=== PATIENT | female | born 1990 | race Caucasian/White ===

== ENCOUNTER 2017-12-23 07:39 | Inpatient (IN) | payer MEDICAID ==
[~2017-12-23] VITALS: Ht 170.2 cm
[2017-12-23] MEDS ORDERED: LACTATED RINGERS 1,000 ML IV SCH ×2 (08:23→08:45)
[2017-12-23] MEDS ORDERED: DEXT 5%/LR + PITOCIN 20UNITS/L 1,000 ML IV SCH ×2 (08:23→11:12)
[2017-12-23] MEDS ORDERED: CARBOPROST TROMETHAMINE 250 MCG/ML AMPUL IM PRN (08:30)
[2017-12-23] MEDS ORDERED: LIDOCAINE HCL 1% 20ML VIAL (Pyxis) INJ INFIL SCH (08:30)
[2017-12-23] MEDS ORDERED: PENICILLIN G POTASSIUM 5 MMU in DEXT 5% WATER 100 ML IV SCH (08:30)
[2017-12-23] MEDS ORDERED: METHYLERGONOVINE MALEATE 0.2 MG/ML IM PRN ×2 (08:30→11:15)
[2017-12-23] MEDS ORDERED: MISOPROSTOL 100MCG TABLET VG SCH (08:30)
[2017-12-23] MEDS ORDERED: NALOXONE HCL 0.4 MG/ML 1ML VIAL IM PRN (08:30)
[2017-12-23] MEDS ORDERED: BUTORPHANOL TARTRATE 2 MG/ML VIAL IV PRN (08:30)
[2017-12-23 09:00] LABS: BASOPHILS % 0.2 % (0.0-2.0); EOSINOPHILS % 0.2 % (0.0-5.0); HEMATOCRIT. 34.3 % (36.0-48.0); HEMOGLOBIN. 11.2 g/dL (12.0-16.0); MEAN CORPUSCULAR HEMOGLOBIN 26.4 pg (28.0-32.0); MEAN CORPUSCULAR VOLUME 80.9 fL (81.0-99.0); MEAN PLATELET VOLUME 9.1 fl (7.4-10.4); MONOCYTES % 5.5 % (2.0-8.0); NEUTROPHILS % 76.1 % (40.0-76.0); PLATELET 252 x1000/uL (130-400); RED BLOOD CELL COUNT 4.24 mill/uL (4.2-5.4)
[2017-12-23 09:02] LABS: CLARITY URINE CLEAR (CLEAR); COLOR URINE YELLOW (YELLOW); KETONES URINE NEGATIVE (NEGATIVE); LEUKOCYTE ESTERASE URINE 2+ (NEGATIVE); NITRITE URINE NEGATIVE (NEGATIVE); OCCULT BLOOD URINE NEGATIVE (NEGATIVE); PH URINE 6.5 (4.5-8.0); PROTEIN URINE NEGATIVE (NEGATIVE); SPECIFIC GRAVITY URINE 1.017 (1.005-1.030); UROBILINOGEN URINE 0.2 E.U./dL (0.2-1.0)
[2017-12-23 09:03] LABS: INR 0.9; PARTIAL THROMBOPLASTIN TIME 26.7 sec (23.4-31.0); PROTHROMBIN TIME 9.7 sec (9.4-11.6)
[2017-12-23 09:37] LABS: *AMPHETAMINES SCREEN URINE NEGATIVE (NEGATIVE); *BARBITURATES SCREEN URINE NEGATIVE (NEGATIVE); *BENZODIAZEPINES SCREEN URINE NEGATIVE (NEGATIVE); *COCAINE SCREEN URINE NEGATIVE (NEGATIVE); CANNABINOID URINE SCREEN NEGATIVE (NEGATIVE); METHADONE URINE SCREEN NEGATIVE (NEGATIVE); OPIATES URINE SCREEN NEGATIVE (NEGATIVE); PHENCYCLIDINE URINE SCREEN NEGATIVE (NEGATIVE)
[2017-12-23] MEDS ORDERED: LIDOCAINE HCL/PF 1% 10 MG/ML 5ML VIAL ONE (11:08)
[2017-12-23] MEDS ORDERED: ACETAMINOPHEN WITH CODEINE 300/30MG TABLET PO PRN (11:15)
[2017-12-23] MEDS ORDERED: LANOLIN OINT 0.25 GM TUBE TOP PRN (11:15)
[2017-12-23] MEDS ORDERED: GLYCERIN/WITCH HAZEL LEAF MEDICATED PAD TOP PRN (11:15)
[2017-12-23] MEDS ORDERED: HEMORRHOIDAL SUPP PR PRN (11:15)
[2017-12-23] MEDS ORDERED: BENZOCAINE/LANOLIN/ALOE VERA SPRAY TOP PRN (11:15)
[2017-12-23] MEDS ORDERED: BISACODYL 10MG SUPP PR PRN (11:15)
[2017-12-23] MEDS ORDERED: DIPHENHYDRAMINE 25MG CAPSULE PO PRN (11:15)
[2017-12-23] MEDS: MAGNESIUM/ALUMINUM HYDROXIDE/SIMETHICONE 30ML UDC PO SCH ×2 (12:10→21:57)
[2017-12-23 12:12] LABS: HEPATITIS B SURFACE ANTIGEN NEGATIVE
[2017-12-23] MEDS ORDERED: PENICILLIN G POTASSIUM 2.5 MMU in DEXTROSE 5% WATER 50 ML IV SCH (12:30)
[2017-12-23] MEDS: SIMETHICONE 80MG TABLET CHEW PO SCH ×2 (12:40→21:58)
[2017-12-23 14:00] VITALS: BP 110/70
[2017-12-23] MEDS ORDERED: MISOPROSTOL 200MCG TABLET ONE (14:31)
[2017-12-23] MEDS ORDERED: METHYLERGONOVINE MALEATE 0.2 MG/ML ONE (14:31)
[2017-12-23] MEDS ORDERED: CARBOPROST TROMETHAMINE 250 MCG/ML AMPUL IM ONE (14:31)
[2017-12-23 18:00] VITALS: BP 104/67
[2017-12-23] MEDS: IBUPROFEN 400MG TABLET PO PRN (18:24)
[2017-12-23] MEDS: DOCUSATE SODIUM 100MG CAPSULE PO SCH (21:59)
[2017-12-24] VITALS: BP 114/57
[2017-12-24 06:51] LABS: BASOPHILS % 0.3 % (0.0-2.0); EOSINOPHILS % 0.7 % (0.0-5.0); HEMATOCRIT. 27.8 % (36.0-48.0); HEMOGLOBIN. 9.1 g/dL (12.0-16.0); LYMPHOCYTES % 24.9 % (20.0-50.0); MEAN CORPUSCULAR HEMOGLOBIN 26.4 pg (28.0-32.0); MEAN CORPUSCULAR VOLUME 80.9 fL (81.0-99.0); MEAN PLATELET VOLUME 9.1 fl (7.4-10.4); MONOCYTES % 8.5 % (2.0-8.0); NEUTROPHILS % 65.6 % (40.0-76.0); PLATELET 225 x1000/uL (130-400); RED BLOOD CELL COUNT 3.44 mill/uL (4.2-5.4); RED CELL DISTRIBUTION WIDTH 16.8 % (11.6-14.6)
[2017-12-24 08:00] VITALS: BP 104/61
[2017-12-24] MEDS: MAGNESIUM/ALUMINUM HYDROXIDE/SIMETHICONE 30ML UDC PO SCH ×4 (09:00→20:59)
[2017-12-24] MEDS: PRENATAL VIT/FE FUMARATE/FA TABLET PO SCH (09:53)
[2017-12-24] MEDS: FERROUS SULFATE 325MG TABLET PO SCH ×3 (09:53→17:36)
[2017-12-24] MEDS: SIMETHICONE 80MG TABLET CHEW PO SCH ×4 (09:54→21:02)
[2017-12-24] MEDS: IBUPROFEN 400MG TABLET PO PRN ×2 (09:54→17:37)
[2017-12-24 16:00] VITALS: BP 100/58
[2017-12-24 19:55] VITALS: BP 103/57
[2017-12-24] MEDS: ACETAMINOPHEN WITH CODEINE 300/30MG TABLET PO PRN (20:16)
[2017-12-24] MEDS: DOCUSATE SODIUM 100MG CAPSULE PO SCH (21:01)
[2017-12-25] MEDS: ACETAMINOPHEN WITH CODEINE 300/30MG TABLET PO PRN (03:11)
[2017-12-25 07:38] VITALS: BP 107/71
[2017-12-25] MEDS: PRENATAL VIT/FE FUMARATE/FA TABLET PO SCH (08:58)
[2017-12-25] MEDS: MAGNESIUM/ALUMINUM HYDROXIDE/SIMETHICONE 30ML UDC PO SCH (08:58)
[2017-12-25] MEDS: FERROUS SULFATE 325MG TABLET PO SCH (08:59)
[2017-12-25] MEDS: SIMETHICONE 80MG TABLET CHEW PO SCH (09:00)
== END 2017-12-25 17:30 | disposition home or self-care (01) | DRG 560 ==
LOC: OBSVTOIN 07:39 → L&D 07:39 → 7EST PP/OB 13:39
PROVIDERS: ADMIT Obstetrics & Gynecology; ATTEND Obstetrics & Gynecology
PROC: 0HQ9XZZ Repair Perineum Skin, External Approach (ICD-10-PCS; 2017-12-23)
PROC: 10E0XZZ Delivery of Products of Conception, External Approach (ICD-10-PCS; principal; 2017-12-23 10:57)
DX: O70.0 First degree perineal laceration during delivery (principal); Z37.0 Single live birth; Z3A.39 39 weeks gestation of pregnancy
CPT/HCPCS: 36415; 80305; 81003; 85025; 85610; 85730; 86592; 86703; 86762; 86850; 86900; 87077; 87086; 87186; 87340; J0595; J2210; J2310; J2540; J2590; J3490; J7060; J7120